=== PATIENT | male | born 1995 | race Caucasian/White ===

== ENCOUNTER 2017-10-13 18:14 | Observation (INO) | payer MEDICAID ==
[~2017-10-13] VITALS: Ht 175.3 cm; Wt 65.0 kg
--- NOTE | 2017-10-13 19:40 | RADRPT ---
PROCEDURE: XR Chest. CLINICAL INDICATION: Chest Pain. TECHNIQUE: Single frontal view of the chest was obtained COMPARISON: None FINDINGS: The patient has had previous median sternotomy. The cardiac silhouette is unremarkable. The lungs are clear. There is no pleural effusion or pneumothorax. The bones and soft tissue show no acute change. IMPRESSION: 1. No acute abnormalities are identified. 2. The patient has had previous median sternotomy. RPTAT:AAJJ Physician Gabriel Date Time Electronically viewed and signed by Physician Gabriel on 10/13/2017 19:39 /
[2017-10-13 20:08] LABS: BASOPHIL # 0.1 10^3/ul (0.0-0.1); BASOPHILS % 0.4 % (0.0-2.0); EOSINOPHILS % 0.2 % (0.0-7.0); HEMATOCRIT 41.8 % (42.0-52.0); HEMOGLOBIN 14.5 g/dl (14.0-18.0); LYMPHOCYTES % 7.7 % (15.0-51.0); MEAN CORPUSCULAR HEMOGLOBIN 30.5 pg (29.0-33.0); MEAN CORPUSCULAR HGB CONC 34.7 g/dl (32.0-37.0); MEAN CORPUSCULAR VOLUME 87.8 fl (82.0-101.0); MEAN PLATELET VOLUME 10.3 fl (7.4-10.4); MONOCYTE # 0.9 10^3/ul (0.3-0.9); MONOCYTES % 6.8 % (0.0-11.0); NEUTROPHIL # 10.8 10^3/ul (1.6-7.5); NEUTROPHILS % 84.5 % (39.0-77.0); PLATELET COUNT 245 10^3/UL (140-415); RED BLOOD COUNT 4.76 10^6/ul (4.70-6.10); RED CELL DISTRIBUTION WIDTH 12.4 % (11.5-14.5); WHITE BLOOD COUNT 12.8 10^3/ul (4.8-10.8)
[2017-10-13 20:22] LABS: INR 1.2; PROTIME 15.3 Sec (12.2-14.2); PT RATIO 1.2
[2017-10-13 20:23] LABS: PARTIAL THROMBOPLASTIN TIME 28.9 Sec (25.0-35.0)
[2017-10-13 20:37] LABS: ALANINE AMINOTRANSFERASE 29 IU/L (13-69); ALBUMIN 4.6 g/dl (3.3-4.9); ALBUMIN/GLOBULIN RATIO 1.58; ALKALINE PHOSPHATASE 68 IU/L (42-121); ANION GAP 21 (8-16); ASPARTATE AMINO TRANSFERASE 21 IU/L (15-46); BILIRUBIN,INDIRECT 0.5 mg/dl (0-1.1); BILIRUBIN,TOTAL 0.5 mg/dl (0.2-1.3); BLOOD UREA NITROGEN 15 mg/dl (7-20); CALCIUM 9.4 mg/dl (8.4-10.2); CARBON DIOXIDE 27 mmol/L (21-31); CHLORIDE 101 mmol/L (97-110); CREATININE 0.94 mg/dl (0.61-1.24); GLUCOSE 139 mg/dl (70-220); POTASSIUM 4.6 mmol/L (3.5-5.1); SODIUM 144 mmol/L (135-144); TOTAL PROTEIN 7.5 g/dl (6.1-8.1)
[2017-10-13 20:49] LABS: B-TYPE NATRIURETIC PEPTIDE 190 PG/ML (0-125)
[2017-10-13 20:50] LABS: TROPONIN-I < 0.012 ng/ml (0.00-0.12)
[2017-10-13] MEDS ORDERED: PREG150C PO (21:03)
[2017-10-13] MEDS ORDERED: GABA-528 PO (21:03)
[2017-10-13] MEDS ORDERED: LISI10TA2 PO (21:04)
[2017-10-13] MEDS ORDERED: ACETAMINOPHEN 325 MG TAB PO PRN ×2 (22:00→23:00)
[2017-10-13] MEDS ORDERED: ONDANSETRON 4 MG INJ IV PRN (22:00)
--- NOTE | 2017-10-13 22:56 | ERD ---
ER Documentation Chief Complaint Chief Complaint has a valve that needs to be repaired in his heart and not taking meds HPI This is a 22-year-old male with a history of bicuspid aortic valve status post repair when he was 15 years old presenting to the ER complaining of chest pressure. 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 After this, he has had some slowing of his speech. He states that the valve that they had placed originally was to be replaced 1 year ago. However he was lost to follow-up as his insurance lapsed and he had no primary or cardiac physician. He has also been out of his medications for several months. He is supposed to be on antihypertensives and aspirin. He has had ongoing chest pressure for several months however today his symptoms were significantly worse. He had palpitations intermittently with shortness of breath. Per his girlfriend at bedside, he has been laying in bed all day. He denies any associated fever, chills, weight loss, dizziness, vomiting, nausea, abdominal pain, or swelling of his extremities. He has no new focal weakness or numbness. He is at his neurologic baseline per his girlfriend ROS All systems reviewed and are negative except as per history of present illness. Medications Home Meds Reported Medications Lisinopril* (Lisinopril*) 10 Mg Tablet, 10 MG PO DAILY, #30 TAB 10/13/17 Gabapentin* (Gabapentin*) 800 Mg Tablet, 800 MG PO QID, #90 TAB 10/13/17 Pregabalin* (Lyrica*) 150 Mg Capsule, 150 MG PO TID, CAP 10/13/17 Allergies Allergies: Coded Allergies: No Known Allergy (Unverified , 10/13/17) PMhx/Soc History of Surgery: Yes (Mitral valve repair) Anesthesia Reaction: No Hx Neurological Disorder: Yes (CVA 2yrs ago) Hx Respiratory Disorders: No Hx Cardiac Disorders: Yes (Bicuspid Aortic Valve malfunction) Hx Miscellaneous Medical Probl: No Hx Alcohol Use: Yes (Sober for 2 years) Hx Substance Use: Yes (Heroin/Meth last was 4 months ago) Hx Tobacco Use: No Smoking Status: Never smoker FmHx Family History: No diabetes Physical Exam Vitals Vital Signs Date Time Temp Pulse Resp B/P Pulse Ox O2 Delivery O2 Flow Rate FiO2 10/14/17 00:15 98.0 72 16 108/62 100 Room Air 10/13/17 23:30 98.0 70 17 81/50 100 Room Air 10/13/17 22:30 98.0 82 23 102/58 100 Room Air 10/13/17 21:30 98.0 78 22 107/55 100 Room Air 10/13/17 20:30 98.0 88 20 101/54 100 Room Air 10/13/17 19:35 98.0 84 20 105/61 100 Room Air 10/13/17 18:21 98.0 96 18 115/58 99 Physical Exam Const: Appears fatigued, slowed speech, nontoxic, no diaphoresis Head: Atraumatic Eyes: Normal Conjunctiva. Initially noted to have anisocoria with left greater than right size pupil, reactive to light bilaterally with no afferent pupillary defect. The patient states he has had anisocoria ever since his stroke. EOMI. No nystagmus ENT: Normal External Ears, Nose and Mouth. Neck: Full range of motion..~ No meningismus. No JVD. Resp: Clear to auscultation bilaterally Cardio: Regular rate and rhythm, systolic murmur with a loud S2, loudest at aortic area. Auscultation of all other sites of chest reveal a holosystolic murmur.. 2+ distal pulses in all 4 extremities. Abd: Soft, non tender, non distended. Normal bowel sounds Skin: No petechiae or rashes Back: No midline or flank tenderness Ext: No cyanosis, or edema Neur: Awake and alert Psych: Normal Mood and Affect Result Diagram: 10/13/17194910/13/17 1950 Results 24 hrs Laboratory Tests Test 10/13/17 19:50 White Blood Count 12.810^3/ul Red Blood Count 4.7610^6/ul Hemoglobin 14.5g/dl Hematocrit 41.8% Mean Corpuscular Volume 87.8fl Mean Corpuscular Hemoglobin 30.5pg Mean Corpuscular Hemoglobin Concent 34.7g/dl Red Cell Distribution Width 12.4% Platelet Count 26011^3/UL Mean Platelet Volume 10.3fl Neutrophils % 84.5% Lymphocytes % 7.7% Monocytes % 6.8% Eosinophils % 0.2% Basophils % 0.4% Nucleated Red Blood Cells % 0.0/100WBC Neutrophils # 10.810^3/ul Lymphocytes # 1.010^3/ul Monocytes # 0.910^3/ul Eosinophils # 0.010^3/ul Basophils # 0.110^3/ul Nucleated Red Blood Cells # 0.010^3/ul Prothrombin Time 15.3Sec Prothrombin Time Ratio 1.2 INR International Normalized Ratio 1.20 Activated Partial Thromboplast Time 28.9Sec Sodium Level 144mmol/L Potassium Level 4.6mmol/L Chloride Level 101mmol/L Carbon Dioxide Level 27mmol/L Anion Gap 21 Blood Urea Nitrogen 15mg/dl Creatinine 0.94mg/dl Glucose Level 139mg/dl Calcium Level 9.4mg/dl Total Bilirubin 0.5mg/dl Direct Bilirubin 0.00mg/dl Indirect Bilirubin 0.5mg/dl Aspartate Amino Transf (AST/SGOT) 21IU/L Alanine Aminotransferase (ALT/SGPT) 29IU/L Alkaline Phosphatase 68IU/L Troponin I < 0.012ng/ml B-Type Natriuretic Peptide 190PG/ML Total Protein 7.5g/dl Albumin 4.6g/dl Globulin 2.90g/dl Albumin/Globulin Ratio 1.58 Current Medications Medications (Trade) Dose Ordered Sig/Haydee Route PRN Reason Start Time Stop Time Status Last Admin Dose Admin Ondansetron HCl (Zofran Inj) 4 mg ER BRIDGE PRN IV NAUSEA AND/OR VOMITING 10/13/17 22:00 10/14/17 21:59 Acetaminophen (Tylenol Tab) 650 mg ER BRIDGE PRN PO MILD PAIN/FEVER 10/13/17 22:00 10/14/17 21:59 IV Flush (NS 3 ml) 3 ml PER PROTOCOL IV 10/13/17 23:00 Ondansetron HCl (Zofran Tab) 4 mg Q6H PRN PO NAUSEA AND/OR VOMITING 10/13/17 23:00 UNV Acetaminophen (Tylenol Tab) 650 mg Q6H PRN PO PAIN LEVEL 1-3 OR FEVER 10/13/17 23:00 Docusate Sodium (Colace) 100 mg Q12H PRN PO CONSTIPATION 10/13/17 23:00 UNV Bisacodyl (Dulcolax) 5 mg DAILY PRN PO CONSTIPATION 10/13/17 23:00 Procedures/[facility] EKG: Rate/Rhythm: Normal sinus rhythm QRS, ST, T-waves: No changes consistent w/ acute ischemia] Impression: No evidence of ischemia or arrhythmia Imaging Chest x-ray shows no acute abnormalities Labs CBC: Mild leukocytosis with left shift, no anemia CMP: No evidence of electrolyte abnormality, renal failure, hypoglycemia, liver failure, or biliary obstruction BMP within normal limits slightly elevated Troponin within normal limits MDM Patient is presenting with chest pressure and shortness of breath, concerning for possible heart failure. However he has no exam findings consistent with heart failure. His x-ray did not show any signs of fluid overload or cardiomegaly. His vitals were within normal limits and remained that way while he was in the ER. I have a low suspicion for acute coronary syndrome, pulmonary embolism, aortic dissection, cardiac tamponade, pericarditis, myocarditis. However on my exam, the patient's appearance is a little concerning and they believe he would benefit from an inpatient echocardiogram and cardiology consult as he does not have good outpatient follow-up. I spoke with the hospitalist on-call, Dr. Serrano, who accepted the patient for admission for observation and monitoring on telemetry. Plan is to get an echocardiogram in the morning and consult cardiology. Departure Diagnosis: Primary Impression: Chest pressure Additional Impressions: Dyspnea Dyspnea type: unspecified Qualified Code: R06.00 - Dyspnea, unspecified type Generalized weakness Condition: Fair BRIDGET DELGADO MD Oct 13, 2017 22:56
[2017-10-13] MEDS ORDERED: NACL 0.9% 3 ML SYG IV SCH (23:00)
[2017-10-13] MEDS ORDERED: ONDANSETRON 4 MG TAB PO PRN (23:00)
[2017-10-13] MEDS ORDERED: DOCUSATE SODIUM 100 MG CAP PO PRN (23:00)
[2017-10-13] MEDS ORDERED: BISACODYL (EC) 5 MG TAB PO PRN (23:00)
[2017-10-14] VITALS (10 sets, daily range): BP systolic 93–99; BP diastolic 49–55; PULSE 62–76; RESP 18–20; TEMP 98; Ht 175.3 cm; Wt 65.0 kg
[2017-10-14 07:10] LABS: BASOPHIL # 0.1 10^3/ul (0.0-0.1); BASOPHILS % 0.7 % (0.0-2.0); EOSINOPHILS # 0.1 10^3/ul (0.0-0.5); EOSINOPHILS % 1.7 % (0.0-7.0); HEMATOCRIT 39.3 % (42.0-52.0); HEMOGLOBIN 13.8 g/dl (14.0-18.0); LYMPHOCYTES # 1.9 10^3/ul (0.8-2.9); LYMPHOCYTES % 27.2 % (15.0-51.0); MEAN CORPUSCULAR HEMOGLOBIN 30.7 pg (29.0-33.0); MEAN CORPUSCULAR HGB CONC 35.1 g/dl (32.0-37.0); MEAN CORPUSCULAR VOLUME 87.5 fl (82.0-101.0); MEAN PLATELET VOLUME 10.4 fl (7.4-10.4); MONOCYTE # 0.8 10^3/ul (0.3-0.9); MONOCYTES % 10.9 % (0.0-11.0); NEUTROPHIL # 4.2 10^3/ul (1.6-7.5); NEUTROPHILS % 59.2 % (39.0-77.0); PLATELET COUNT 240 10^3/UL (140-415); RED BLOOD COUNT 4.49 10^6/ul (4.70-6.10); RED CELL DISTRIBUTION WIDTH 12.8 % (11.5-14.5); WHITE BLOOD COUNT 7.1 10^3/ul (4.8-10.8)
[2017-10-14 07:29] LABS: ALBUMIN 4.1 g/dl (3.3-4.9); ALBUMIN/GLOBULIN RATIO 1.51; BILIRUBIN,INDIRECT 0.8 mg/dl (0-1.1); BILIRUBIN,TOTAL 0.8 mg/dl (0.2-1.3); CALCIUM 9.6 mg/dl (8.4-10.2); CHOL/HDL RATIO 3.2 RATIO; CREATININE 0.88 mg/dl (0.61-1.24); MAGNESIUM 2.1 mg/dl (1.7-2.5); POTASSIUM 4.2 mmol/L (3.5-5.1); TOTAL PROTEIN 6.8 g/dl (6.1-8.1)
[2017-10-14 07:46] LABS: TROPONIN-I 0.015 ng/ml (0.00-0.12)
[2017-10-14 07:48] LABS: CK-MB 0.86 ng/ml (0.0-2.4)
[2017-10-14 07:59] LABS: THYROID STIMULATING HORMONE 0.243 MIU/L (0.465-4.680)
--- NOTE | 2017-10-14 08:31 | HP ---
Date/Time of Note Date/Time of Note DATE: 10/14/17 TIME: 08:21 Assessment/Plan VTE Prophylaxis VTE Prophylaxis Intervention: SCD's Lines/Catheters IV [facility]from [facility] Peripheral IV Assessment/Plan Chief Complaint/Hosp Course Is a 22-year-old male being admitted to the telemetry floor for: #1 chest pain: ACS versus symptomatic cardiac etiology secondary to bicuspid aortic valve. At the current time will trend cardiac enzymes 3, first set was negative. Will check echocardiogram. Will need to consult cardiology. Will check a tsh. May need CT surgery consult as well as patient may be requiring aortic valve repair/replacement. #2 history of bicuspid aortic valve: Patient had this originally repaired in 2008. He was apparently supposed to have a replacement one year ago but he was lost to follow-up secondary to him not having insurance. At the current time will check an echocardiogram as per #1. Will need to consult cardiology with possible consultation with CT surgery. #3 CVA: Patient does not have any focal neurological deficits on exam, he does state that at times he does have a limp though this was not assessed secondary to patient deferring gait examination. He does have residual neuropathic pain for which she is taking gabapentin and Lyrica. #4 left-sided neuropathic pain: Secondary to #3. Continue gabapentin and Lyrica #5 history of drug abuse: Patient reports that last drug use was 4 months ago of methamphetamine and heroin. Will check a urine drug screen at this time. #6 DVT and GI prophylaxis: SCDs, no GI prophylaxis indicated Further treatment strategy will be implemented as per the clinical course Problems: HPI/ROS Admit Date/Time Admit Date/Time Oct 13, 2017 at 21:48 Hx of Present Illness Chief complaint: Chest pain This is a 22-year-old male with a history of bicuspid aortic valve status post repair when he was 15 years old presenting to the ER complaining of chest pressure. 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 After this, he has had some slowing of his speech. He states that the valve that they had placed originally was to be replaced 1 year ago. However he was lost to follow-up as his insurance lapsed and he had no primary or cardiac physician. He has also been out of his medications for several months. He is supposed to be on antihypertensives and aspirin. He has had ongoing chest pressure for several months however today his symptoms were significantly worse. He had palpitations intermittently with shortness of breath. Per his girlfriend at bedside, he has been laying in bed all day. Girlfriend also states that she notices him bobbing his head at times as well on his heart is beating fast. He denies any associated fever, chills, weight loss, dizziness, vomiting, nausea, abdominal pain, or swelling of his extremities. He has no new focal weakness or numbness. He is at his neurologic baseline per his girlfriend Allergies: NKDA Medications: Gabapentin 600 mg every 8 hours Lyrica 75 mg daily Lisinopril 10 mg daily ROS Const: As per HPI Eyes : No pain discharge or redness or change in visual acuity ENT: No pain, sore throat, congestion, congestion, dysphagia or discharge Respiratory: HPI Cardiovascular: As per HPI GI : no change in appetite, abdominal pain, nausea, vomiting, diarrhea, constipation, or change in the color his stool Genitourinary: No dysuria, hematuria, flank pain , discharge or CVA tenderness Musculoskeletal: No joint pain, back pain, neck pain, restricted range of motion in neck or joints Skin: No rash, bruising or hives Neuro: As per HPI Endocrine: No polyuria, polydipsia, temperature intolerance Psych: No hallucination, depression, anxiety or suicidal ideation PMH/Family/Social Past Medical History Bicuspid aortic valve, 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 The pupils are equal, round and reactive. Extraocular motor are intact Neck: Supple with full range of motion. No rigidity or meningismus Chest: Nontender Lungs: Clear to auscultation bilaterally no crackles rales or wheezing Heart: Loud approximately 5 out of 6 systolic murmur greater on the right second intercostal space radiating to the carotid Abdomen: Soft , nontender, nondistended , bowel sounds are present. No guarding no rebound tenderness , No masses or organomegaly. No costovertebral temporal angle mass Extremities: Normal to inspection, no edema no cyanosis Neurologic: Normal mental status, speech normal, cranial nerves II through XII are intact, motor and sensory are intact, no focal weakness Skin: Anterior chest surgical scar Additional Comments PROCEDURE: XR Chest. CLINICAL INDICATION: Chest Pain. TECHNIQUE: Single frontal view of the chest was obtained COMPARISON: None FINDINGS: The patient has had previous median sternotomy. The cardiac silhouette is unremarkable. The lungs are clear. There is no pleural effusion or pneumothorax. The bones and soft tissue show no acute change. IMPRESSION: 1. No acute abnormalities are identified. 2. The patient has had previous median sternotomy. RPTAT:AAJJ Physician Gabriel Date Time Electronically viewed and signed by Yosef Snyder Physician on 10/13/2017 19: 39 MC/ CC: BRIDGET DELGADO MD EKG: Rate/Rhythm: Normal sinus rhythm QRS, ST, T-waves: No changes consistent w/ acute ischemia] Impression: No evidence of ischemia or arrhythmia As per ED physician documentation Labs Result Diagram: 10/14/17 0637 10/14/17 0636 Medications Medications Current Medications Ondansetron HCl (Zofran Tab) 4 mg Q6H PRN PO NAUSEA AND/OR VOMITING; Start at 23:00 Acetaminophen (Tylenol Tab) 650 mg Q6H PRN PO PAIN LEVEL 1-3 OR FEVER; Start 10/13/17 at 23:00 Docusate Sodium (Colace) 100 mg Q12H PRN PO CONSTIPATION; Start 10/13/17 at 23 :00 Bisacodyl (Dulcolax) 5 mg DAILY PRN PO CONSTIPATION; Start 10/13/17 at 23:00 DARIANA SCHROEDER Oct 14, 2017 08:31
[2017-10-14 13:57] LABS: CREATINE KINASE 114 IU/L (23-200)
[2017-10-14 14:16] LABS: CK-MB 0.72 ng/ml (0.0-2.4); TROPONIN-I < 0.012 ng/ml (0.00-0.12)
--- NOTE | 2017-10-14 15:08 | RADRPT ---
Echocardiogram Report Patient Name: RACHAEL HOPKINS Gender: Male Date: 1995 Study Date: 14-Oct-2017 Psychology Instructor: Renetta Connolly [facility] Location: [id number] Ref. Physician: DRAIANA SCHROEDER Quality: Good Procedures: Transthoracic echocardiogram with complete 2D, M-Mode, and doppler examination. Indications: hx of bicuspid aortic valve repair, systolic murmur, SOB w/ bubble study. 2D/M Mode Doppler Measurement Value Normal Ranges Measurement Value Normal Ranges LVIDd 2D 5.5 3.5 - 5.6 cm AGUSTO Vmax 2.5 cm2 LVIDs 2D 3.5 2.1 - 4.1 cm AGUSTO VTI 2.5 cm2 LVPWd 2D 1.3 0.6 - 1.1 cm AV Mean Saud 2.2 m/sec IVSd 2D 1.3 0.6 - 1.1 cm AV Mean PG 21.9 mmHg AoR Diam 2D 2.5 2.0 - 3.7 cm AV Peak Saud 3.0 m/sec EDV 2D 146.7 cm3 AV Peak PG 36.2 mmHg ESV 2D 42.3 cm3 AV VTI 78.0 cm LA Dimen 2D 2.9 2.3 - 4.0 cm AI Peak PG 95.6 mmHg LVOT Diam 2.7 cm AI Peak Saud 4.9 m/sec AI PHT 549.4 msec LVOT Mean Saud 1.0 m/sec LVOT Mean PG 4.1 mmHg LVOT Peak Saud 1.4 m/sec LVOT Peak PG 7.4 mmHg LVOT VTI 34.4 cm MV E Peak Saud 0.9 m/sec MV A Peak Saud 0.4 m/sec MV E/A 2.6 MV Decel Time 106 msec MV Decel [place] 9 MV E/A 2.6 TR Peak Saud 2.6 m/sec TR Peak PG 26.7 mmHg RVSP 30.0 mmHg Findings Left Ventricle: Lower limits of normal systolic function. Left ventricular cavity size upper limits of normal. Mild concentric left ventricular hypertrophy. Ejection fraction is visually estimated at 5055 %. Tissue Doppler/Mitral Doppler indices are within normal limits. Right Ventricle: Normal right ventricular size. Normal right ventricular systolic function. Left Atrium: The left atrium is normal in size. Right Atrium: The right atrium is normal in size. Atrial Septum: Bubble study was performed with and with out valsalva indicating no evidence of intra atrial shunt. Mitral Valve: Mitral valve leaflets appear mildly thickened. Mild mitral annular calcification. Trace mitral regurgitation. Aortic Valve: Mild aortic stenosis. Aortic valve Max velocity 3.01 m/sec. Max PG 36.20 mmHg. Mean PG 21.90 mmHg. Aortic valve area 2.50 cm2. Aortic cusps appear calcified and thickened. Mild to moderate aortic valve regurgitation. Tricuspid Valve: Normal appearance of the tricuspid valve. Estimated peak PA systolic pressure 30 mmHg. There is mild tricuspid regurgitation. Pulmonic Valve: Normal pulmonic valve appearance. There is trace pulmonic regurgitation. Pericardium: Normal pericardium with no significant pericardial effusion. Aorta: Normal aortic root. IVC: Normal size and normal respiratory collapse consistent with normal right atrial pressure. Conclusions Lower limits of normal systolic function. Left ventricular cavity size upper limits of normal. Mild concentric left ventricular hypertrophy. Ejection fraction is visually estimated at 50-55 %. Tissue Doppler/Mitral Doppler indices are within normal limits. Normal right ventricular size. Normal right ventricular systolic function. The left atrium is normal in size. The right atrium is normal in size. Mild aortic stenosis. Aortic cusps appear calcified and thickened. Mild to moderate aortic valve regurgitation. Estimated peak PA systolic pressure 30 mmHg. There is mild tricuspid regurgitation. Trace mitral regurgitation. Normal pericardium with no significant pericardial effusion. Electronically Signed By: Shawn Nelson 14-Oct-2017 15:07:48 -0800 Patient Name: RACHAEL HOPKINS Study Date: 14-Oct-2017 [id number]
--- NOTE | 2017-10-14 17:18 | CONS ---
Date/Time of Note Date/Time of Note DATE: 10/14/17 TIME: 17:08 Assessment/Plan Assessment/Plan Additional Assessment/Plan Shortness of breath and fatigue History of bicuspid aortic valve status post surgery 7 years ago Mild to moderate aortic valve regurgitation History of CVA History of illicit drug use -Patient has been having symptoms of shortness of breath over the past 6 months. Chest x-ray with no evidence of significant pulmonary vascular congestion, serial cardiac enzymes have remained negative. Echocardiogram with at worst, moderate aortic valve regurgitation. LV function lower limits of normal. The severity of her patient's symptoms of shortness of breath did not correlate with his echocardiographic findings. I am unsure if his symptoms are secondary to his aortic valve disease. In discussion with the patient's father , he was told a year and a half ago that his regurgitation was about moderate as well. There is no need for emergent surgical intervention at the current time. Our patient is in the process of regaining his health insurance and was following up at [facility], would recommend to continue follow-up as an outpatient. 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 Patient states symptoms have been usually with exertion. He does feel overall very tired. He has been feeling more anxious over the past few days and he is unsure if that is prior to the shortness of breath or not. 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 He does get occasional chills but denies any fevers, cough. 12 point review of systems was performed with all pertinent positives and negatives mentioned above and all else is negative Past Medical History Aortic Valve disease CVA Past Surgical History AV surgery Family History Significant Family History: no pertinent family hx Social History Alcohol Use: none Smoking Status: Former smoker Drug Use: other (Patient reports heroin and meth use approximately 4 months ago ) Exam/Review of Systems Vital Signs Vitals Vital Signs Date Time Temp Pulse Resp B/P Pulse Ox O2 Delivery O2 Flow Rate FiO2 11/29/17 16:05 66 10/14/17 16:00 97.8 20 99/52 98 10/14/17 00:15 Room Air Exam nad Constitutional: alert, oriented Head: normocephalic Respiratory: clear to auscultation, normal air movement Cardiovascular: other (s1s2), regular rate and rhythm, systolic murmur Gastrointestinal: bowel sounds, non-tender, soft Extremities: other (no edema) Results Result Diagram: 10/14/17 0637 10/14/17 0636 Results 24 hrs Laboratory Tests Test 10/13/17 19:50 10/14/17 06:36 10/14/17 06:37 10/14/17 13:09 White Blood Count 12.8 H 7.1 # Red Blood Count 4.76 4.49 L Hemoglobin 14.5 13.8 L Hematocrit 41.8 L 39.3 L Mean Corpuscular Volume 87.8 87.5 Mean Corpuscular Hemoglobin 30.5 30.7 Mean Corpuscular Hemoglobin Concent 34.7 35.1 Red Cell Distribution Width 12.4 12.8 Platelet Count 245 240 Mean Platelet Volume 10.3 10.4 Neutrophils % 84.5 H 59.2 Lymphocytes % 7.7 L 27.2 Monocytes % 6.8 10.9 Eosinophils % 0.2 1.7 Basophils % 0.4 0.7 Nucleated Red Blood Cells % 0.0 0.0 Neutrophils # 10.8 H 4.2 Lymphocytes # 1.0 1.9 Monocytes # 0.9 0.8 Eosinophils # 0.0 0.1 Basophils # 0.1 0.1 Nucleated Red Blood Cells # 0.0 0.0 Prothrombin Time 15.3 H Prothrombin Time Ratio 1.2 INR International Normalized Ratio 1.20 Activated Partial Thromboplast Time 28.9 Sodium Level 144 144 Potassium Level 4.6 4.2 Chloride Level 101 104 Carbon Dioxide Level 27 30 Anion Gap 21 H 14 # Blood Urea Nitrogen 15 14 Creatinine 0.94 0.88 Glucose Level 139 90 # Calcium Level 9.4 9.6 Total Bilirubin 0.5 0.8 Direct Bilirubin 0.00 0.00 Indirect Bilirubin 0.5 0.8 Aspartate Amino Transf (AST/SGOT) 21 21 Alanine Aminotransferase (ALT/SGPT) 29 27 Alkaline Phosphatase 68 65 Troponin I < 0.012 0.015 < 0.012 B-Type Natriuretic Peptide 190 H Total Protein 7.5 6.8 Albumin 4.6 4.1 Globulin 2.90 2.70 Albumin/Globulin Ratio 1.58 1.51 Hemoglobin A1c 4.7 Magnesium Level 2.1 Creatine Kinase 108 114 Creatine Kinase Index 0.8 0.6 Creatinine Kinase MB (Mass) 0.86 0.72 Triglycerides Level 67 Cholesterol Level 111 LDL Cholesterol, Calculated 64 HDL Cholesterol 34 Cholesterol/HDL Ratio 3.2 Thyroid Stimulating Hormone (TSH) 0.243 L Test 10/14/17 15:44 Free Thyroxine 0.89 Medications Medications Current Medications Ondansetron HCl (Zofran Tab) 4 mg Q6H PRN PO NAUSEA AND/OR VOMITING; Start at 23:00 Acetaminophen (Tylenol Tab) 650 mg Q6H PRN PO PAIN LEVEL 1-3 OR FEVER; Start 10/13/17 at 23:00 Docusate Sodium (Colace) 100 mg Q12H PRN PO CONSTIPATION; Start 10/13/17 at 23 :00 Bisacodyl (Dulcolax) 5 mg DAILY PRN PO CONSTIPATION; Start 10/13/17 at 23:00 Procedures Procedures ecg sr, LVH, non-specific st abn Shawn Nelson DO Oct 14, 2017 17:18
--- NOTE | 2017-10-14 18:34 | PDOCDIS ---
Discharge Instructions DIAGNOSIS Discharge Diagnosis Chest pressure CONDITION Patient Condition: Good HOME CARE INSTRUCTIONS: Diet Instructions: Regular FOLLOW UP/APPOINTMENTS Follow-up Plan Follow up with your chart calculator and primary care doctor MEDARDO DAVILA MD Oct 14, 2017 18:34
--- NOTE | 2017-10-14 18:41 | DS ---
Date/Time of Note Date/Time of Note DATE: 10/14/17 TIME: 18:38 Discharge Summary Admission/Discharge Info Admit Date/Time Oct 13, 2017 at 21:48 Discharge Date/Time Discharge Diagnosis Chest pressure Patient Condition: Good Hospital Course The patient's troponins were negative to exclude an ACS. TTE was performed showing fairly normal EF and moderate at most AI. Dr Nelson saw the patient and felt these findings to not explain his symptoms. He had no notable findings on cardiopulmonary exam or CXR to explain them either. 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 Home Meds Discontinued Reported Medications Lisinopril* (Lisinopril*) 10 Mg Tablet, 10 MG PO DAILY, #30 TAB 10/13/17 Gabapentin* (Gabapentin*) 800 Mg Tablet, 800 MG PO QID, #90 TAB 10/13/17 Pregabalin* (Lyrica*) 150 Mg Capsule, 150 MG PO TID, CAP 10/13/17 Follow-up Plan Follow up with your [facility] and primary care doctor Primary Care Provider Jaycob Smith Time spent on discharge: > 30 minutes Pending Labs Laboratory Tests Test 10/13/17 19:50 10/14/17 06:36 10/14/17 06:37 10/14/17 13:09 White Blood Count 12.810^3/ul (4.8-10.8) 7.110^3/ul (4.8-10.8) Red Blood Count 4.7610^6/ul (4.70-6.10) 4.4910^6/ul (4.70-6.10) Hemoglobin 14.5g/dl (14.0-18.0) 13.8g/dl (14.0-18.0) Hematocrit 41.8% (42.0-52.0) 39.3% (42.0-52.0) Mean Corpuscular Volume 87.8fl (82.0-101.0) 87.5fl (82.0-101.0) Mean Corpuscular Hemoglobin 30.5pg (29.0-33.0) 30.7pg (29.0-33.0) Mean Corpuscular Hemoglobin Concent 34.7g/dl (32.0-37.0) 35.1g/dl (32.0-37.0) Red Cell Distribution Width 12.4% (11.5-14.5) 12.8% (11.5-14.5) Platelet Count 56003^3/UL (140-415) 16637^3/UL (140-415) Mean Platelet Volume 10.3fl (7.4-10.4) 10.4fl (7.4-10.4) Neutrophils % 84.5% (39.0-77.0) 59.2% (39.0-77.0) Lymphocytes % 7.7% (15.0-51.0) 27.2% (15.0-51.0) Monocytes % 6.8% (0.0-11.0) 10.9% (0.0-11.0) Eosinophils % 0.2% (0.0-7.0) 1.7% (0.0-7.0) Basophils % 0.4% (0.0-2.0) 0.7% (0.0-2.0) Nucleated Red Blood Cells % 0.0/100WBC (0.0-0.0) 0.0/100WBC (0.0-0.0) Neutrophils # 10.810^3/ul (1.6-7.5) 4.210^3/ul (1.6-7.5) Lymphocytes # 1.010^3/ul (0.8-2.9) 1.910^3/ul (0.8-2.9) Monocytes # 0.910^3/ul (0.3-0.9) 0.810^3/ul (0.3-0.9) Eosinophils # 0.010^3/ul (0.0-0.5) 0.110^3/ul (0.0-0.5) Basophils # 0.110^3/ul (0.0-0.1) 0.110^3/ul (0.0-0.1) Nucleated Red Blood Cells # 0.010^3/ul (0.0-0.0) 0.010^3/ul (0.0-0.0) Prothrombin Time 15.3Sec (12.2-14.2) Prothrombin Time Ratio 1.2 INR International Normalized Ratio 1.20 Activated Partial Thromboplast Time 28.9Sec (25.0-35.0) Sodium Level 144mmol/L (135-144) 144mmol/L (135-144) Potassium Level 4.6mmol/L (3.5-5.1) 4.2mmol/L (3.5-5.1) Chloride Level 101mmol/L (97-110) 104mmol/L (97-110) Carbon Dioxide Level 27mmol/L (21-31) 30mmol/L (21-31) Anion Gap 21 (8-16) 14 (8-16) Blood Urea Nitrogen 15mg/dl (7-20) 14mg/dl (7-20) Creatinine 0.94mg/dl (0.61-1.24) 0.88mg/dl (0.61-1.24) Glucose Level 139mg/dl (70-220) 90mg/dl (70-220) Calcium Level 9.4mg/dl (8.4-10.2) 9.6mg/dl (8.4-10.2) Total Bilirubin 0.5mg/dl (0.2-1.3) 0.8mg/dl (0.2-1.3) Direct Bilirubin 0.00mg/dl (0.00-0.20) 0.00mg/dl (0.00-0.20) Indirect Bilirubin 0.5mg/dl (0-1.1) 0.8mg/dl (0-1.1) Aspartate Amino Transf (AST/SGOT) 21IU/L (15-46) 21IU/L (15-46) Alanine Aminotransferase (ALT/SGPT) 29IU/L (13-69) 27IU/L (13-69) Alkaline Phosphatase 68IU/L (42-121) 65IU/L (42-121) Troponin I < 0.012ng/ml (0.00-0.12) 0.015ng/ml (0.00-0.12) < 0.012ng/ml (0.00-0.12) B-Type Natriuretic Peptide 190PG/ML (0-125) Total Protein 7.5g/dl (6.1-8.1) 6.8g/dl (6.1-8.1) Albumin 4.6g/dl (3.3-4.9) 4.1g/dl (3.3-4.9) Globulin 2.90g/dl (1.3-3.2) 2.70g/dl (1.3-3.2) Albumin/Globulin Ratio 1.58 1.51 Hemoglobin A1c 4.7% (0-5.9) Magnesium Level 2.1mg/dl (1.7-2.5) Creatine Kinase 108IU/L (23-200) 114IU/L (23-200) Creatine Kinase Index 0.8 0.6 Creatinine Kinase MB (Mass) 0.86ng/ml (0.0-2.4) 0.72ng/ml (0.0-2.4) Triglycerides Level 67mg/dl (0-149) Cholesterol Level 111mg/dl (100-200) LDL Cholesterol, Calculated 64mg/dl HDL Cholesterol 34mg/dl (30-63) Cholesterol/HDL Ratio 3.2RATIO Thyroid Stimulating Hormone (TSH) 0.243MIU/L (0.465-4.680) Test 10/14/17 15:44 Free Thyroxine 0.89ng/dl (0.79-2.35) MEDARDO DAVILA MD Oct 14, 2017 18:41
[2017-10-14 19:23] LABS: D-DIMER 237.61 ng/ml (<460)
== END 2017-10-14 19:26 | disposition home or self-care (01) ==
LOC: E/R 18:14 → MS4 21:48
PROVIDERS: ADMIT Family Medicine; ATTEND Family Medicine
DX: R07.89 Other chest pain (principal); Q23.1 Congenital insufficiency of aortic valve; I69.998 Other sequelae following unspecified cerebrovascular disease; G62.9 Polyneuropathy, unspecified; F15.10 Other stimulant abuse, uncomplicated; F11.10 Opioid abuse, uncomplicated; Z95.4 Presence of other heart-valve replacement; Z87.891 Personal history of nicotine dependence
CPT/HCPCS: 36415; 71010; 80053; 80061; 82550; 82553; 83036; 83735; 83880; 84439; 84443; 84484; 85025; 85378; 85610; 85730; 93005; 93306; Z7500; Z7502; Z7610; G0378